=== PATIENT | female | born 1995 | race Two or more races ===

== ENCOUNTER 2020-02-19 12:06 | Emergency (ER) | payer MEDICAID, OTHER ==
[~2020-02-19] VITALS: Ht 162.6 cm; Wt 77.1 kg
[2020-02-19 12:55] VITALS: BP 101/79
== END 2020-02-19 13:37 | disposition home or self-care (01) ==
LOC: ER 12:08
DX: J03.90 Acute tonsillitis, unspecified (principal); Z88.0 Allergy status to penicillin; Z88.8 Allergy status to other drugs, medicaments and biological substances